=== PATIENT | female | born 1965 | race Caucasian/White ===

== ENCOUNTER 2016-11-06 12:52 | Emergency (ER) | payer OTHER ==
[~2016-11-06] VITALS: Ht 162.6 cm; Wt 66.0 kg
[~2016-11-06 12:52] MED LIST: BLAC20TA PO; IBUP800T23 PO; METH500T3 PO; NORC5TAB PO; ZOFR4TAB3 SL
[2016-11-06 12:54] VITALS: BP 120/70; PULSE 80; RESP 14; TEMP 98.2; O2SAT 99
[2016-11-06] MEDS ORDERED: SODIUM CHLORIDE 0.9% FLUSH 5 ML FLUSH IVF PRN (13:15)
[2016-11-06 13:32] LABS: AUTOMATED NEUTROPHIL # 4.6 TH/MM3 (1.8-7.7); BASOPHIL % 0.3 % (0.0-2.0); EOSINOPHIL # 0.1 TH/MM3 (0-0.4); EOSINOPHIL % 1.3 % (0.0-4.0); HEMATOCRIT 43.5 % (35.0-46.0); HEMO FLAGS DIFF FINAL; LYMPHOCYTE # 2.2 TH/MM3 (1.0-4.8); MEAN CORPUSCULAR HEMOGLOBIN 29.3 PG (27.0-34.0); MEAN CORPUSCULAR HGB CONC 33.7 % (32.0-36.0); MONO % 7.9 % (0.0-8.0); NEUT % 61.5 % (16.0-70.0); PLATELET COUNT 216 TH/MM3 (150-450); RED CELL DISTRIBUTION WIDTH 13.2 % (11.6-17.2); WHITE BLOOD COUNT 7.5 TH/MM3 (4.0-11.0)
--- NOTE | 2016-11-06 13:40 | PD ---
HPI Chief Complaint: Abdominal Pain Time Seen by Provider: 13:33 Travel History International Travel<30 days: No Contact w/Intl Traveler<30days: No Traveled to known affect area: No History of Present Illness HPI 50-year-old female presents to the emergency room for evaluation of periumbilical abdominal discomfort since last night. Patient states he discomfort radiates to her back, worse on the right side. She reports associated nausea without vomiting, early satiety, bloating, dysuria, urgency, and frequency. States she has had a UTI before and believes that she may have one now. She has history of chronic back pain for which she takes muscle relaxers and ibuprofen as needed. She has not taken her prescription for a long time because she has not needed to. She denies hematuria and diarrhea. Patient has history of partial hysterectomy but still has her ovaries. Denies any unusual vaginal bleeding. Patient also complains of left wrist pain for the past week. States she was planning to come to the emergency room anyway for evaluation of her wrist when her abdominal pain began. She denies any trauma or injury. States pain is worsened with any range of motion of the wrist. She has been taking 800 mg ibuprofen without relief in symptoms. Pain is localized to the ulnar aspect and radiates up her arm. Denies paresthesias. PFSH Past Medical History Asthma: Yes Cerebrovascular Accident: Yes Diminished Hearing: No Respiratory: Yes (Asthma ) Tetanus Vaccination: Unknown ?: Not Tubal Ligation: Yes Past Surgical History Hysterectomy: Yes Tonsillectomy: Yes Social History Alcohol Use: No Tobacco Use: Yes (occasional) Substance Use: No Allergies-Medications (Allergen,Severity, Reaction): Coded Allergies: Cipro (Verified Adverse Reaction, Severe, Nausea, 11/06/16) Reported Meds & Prescriptions Reported Meds & Active Scripts Active Bactrim DS (Sulfamethoxazole-Trimethoprim) 800-160 Mg Tab 1 Tab PO BID [place] (Hydrocodone-Acetaminophen) 5-325 mg Tab 1 Tab PO Q6H PRN Zofran Odt (Ondansetron Odt) 4 Mg Tab 4 Mg SL Q6HR PRN Reported Black Cohosh (Black Cohosh Extract) 20 Mg Tab 20 Mg PO DAILY Ibuprofen 800 Mg Tab 800 Mg PO Q6HR PRN Methocarbamol 500 Mg Tab 500 Mg PO TID PRN Review of Systems Except as stated in HPI: all other systems reviewed are Neg Physical Exam Narrative GENERAL: Well-nourished, well-developed female in no acute distress. Afebrile. Ambulatory. SKIN: Warm and dry. No erythema or ecchymosis. HEAD: Normocephalic. EYES: No scleral icterus. No injection or drainage. NECK: Supple, trachea midline. No JVD or lymphadenopathy. CARDIOVASCULAR: Regular rate and rhythm without murmurs, gallops, or rubs. RESPIRATORY: Breath sounds equal bilaterally. No accessory muscle use. GASTROINTESTINAL: Abdomen is soft, benign. Mild tenderness to palpation of the periumbilical region. No peritoneal signs. MUSCULOSKELETAL: No cyanosis, or edema. Full range of motion of the left wrist. 2+ radial pulse. Tenderness to palpation of the ulnar aspect. BACK: Nontender without obvious deformity. No CVA tenderness. Data Data Last Documented VS Vital Signs Date Time Temp Pulse Resp B/P Pulse Ox O2 Delivery O2 Flow Rate FiO2 11/06/16 17:02 70 18 113/75 99 Room Air 11/06/16 12:54 98.2 Orders Complete Blood Count With Diff (11/06/16 13:12) Comprehensive Metabolic Panel (11/06/16 13:12) Lipase (11/06/16 13:12) Prothrombin Time / Inr (Pt) (11/06/16 13:12) Act Partial Throm Time (Ptt) (11/06/16 13:12) Urinalysis - C+S If Indicated (11/06/16 13:12) Iv Access Insert/Monitor (11/06/16 13:12) Sodium Chloride 0.9% Flush (Ns Flush) (11/06/16 13:15) Ed Urine Pregnancytest Poc (11/06/16 13:12) Ct Abd/Pel W Iv Contrast(Rout) (11/06/16 ) Urine Culture (11/06/16 13:15) Ceftriaxone Inj (Rocephin Inj) (11/06/16 15:45) Iohexol 350 Inj (Omnipaque 350 Inj) (11/06/16 16:32) ^ Martell Bandage (11/06/16 17:22) Labs Laboratory Tests Test 11/06/16 13:15 White Blood Count 7.5 TH/MM3 Red Blood Count 5.00 MIL/MM3 Hemoglobin 14.6 GM/DL Hematocrit 43.5 % Mean Corpuscular Volume 87.0 FL Mean Corpuscular Hemoglobin 29.3 PG Mean Corpuscular Hemoglobin 33.7 % Concent Red Cell Distribution Width 13.2 % Platelet Count 216 TH/MM3 Mean Platelet Volume 8.7 FL Neutrophils (%) (Auto) 61.5 % Lymphocytes (%) (Auto) 29.0 % Monocytes (%) (Auto) 7.9 % Eosinophils (%) (Auto) 1.3 % Basophils (%) (Auto) 0.3 % Neutrophils # (Auto) 4.6 TH/MM3 Lymphocytes # (Auto) 2.2 TH/MM3 Monocytes # (Auto) 0.6 TH/MM3 Eosinophils # (Auto) 0.1 TH/MM3 Basophils # (Auto) 0.0 TH/MM3 CBC Comment DIFF FINAL Differential Comment Prothrombin Time 10.9 SEC Prothromb Time International 1.0 RATIO Ratio Activated Partial 26.6 SEC Thromboplast Time Urine Color YELLOW Urine Turbidity HAZY Urine pH 6.5 Urine Specific [place] 1.010 Urine Protein NEG mg/dL Urine Glucose (UA) NEG mg/dL Urine Ketones NEG mg/dL Urine Occult Blood TRACE Urine Nitrite NEG Urine Bilirubin NEG Urine Urobilinogen LESS THAN 2.0 MG/DL Urine Leukocyte Esterase LARGE Urine RBC 2 /hpf Urine WBC 119 /hpf Urine WBC Clumps RARE Urine Squamous Epithelial 9 /hpf Cells Urine Transitional Epithelial <1 /hpf Cells Urine Bacteria FEW /hpf Microscopic Urinalysis Comment CULTURE INDICATED Sodium Level 139 MEQ/L Potassium Level 4.0 MEQ/L Chloride Level 107 MEQ/L Carbon Dioxide Level 25.5 MEQ/L Anion Gap 7 MEQ/L Blood Urea Nitrogen 10 MG/DL Creatinine 0.75 MG/DL Estimat Glomerular Filtration 82 ML/MIN Rate Random Glucose 95 MG/DL Calcium Level 9.1 MG/DL Total Bilirubin 1.4 MG/DL Aspartate Amino Transf 13 U/L (AST/SGOT) Alanine Aminotransferase 28 U/L (ALT/SGPT) Alkaline Phosphatase 79 U/L Total Protein 7.8 GM/DL Albumin 3.9 GM/DL Lipase 161 U/L [facility] Medical Decision Making Medical Screen Exam Complete: Yes Emergency Medical Condition: Yes Medical Record Reviewed: Yes Differential Diagnosis Abdominal pain versus urinary tract infection versus pyelonephritis versus ovarian cyst Narrative Course 50-year-old female presents to the emergency room for evaluation of periumbilical abdominal pain since last night. Patient believes she may have a urinary tract infection because she has associated nausea, early satiety, bloating, dysuria, urgency, and frequency. Denies hematuria. Denies fever, chills. She is afebrile and well-appearing in the emergency room. Vital signs stable. IV access established basic labs obtained. CBC and CMP are unremarkable. UA shows evidence of urinary tract infection with large leukocyte esterase multiple wbc's and few bacteria. She'll be given 1 g IV Rocephin in the emergency room. Abdomen is soft, benign. Tenderness to palpation of the periumbilical region. No peritoneal signs. No significant CVA tenderness. No midline tenderness of the spine. CT the abdomen only shows constipation. Patient reassured. Abdominal pain likely due to constipation or urinary tract infection. Patient also mentions/reports left wrist pain for one week but when distracted has full range of motion of the left wrist without any apparent discomfort. It is neurovascularly intact with 2+ radial pulse. There was no trauma or injury and no indication for emergent imaging at this time. Likely tendinitis or arthritis. Patient placed in Martell wrap and told to follow up as an outpatient for further studies. Discharged with prescription for Bactrim and told to follow up with a primary care physician or return for worsening symptoms. She understands and agrees to this plan. Diagnosis Primary Impression: Urinary tract infection Qualified Code: N30.01 - Acute cystitis with hematuria Additional Impression: Left wrist tendonitis Referrals: Primary Care Physician Patient Instructions: General Instructions, Tendinitis (ED), Urinary Tract Infection in Women (ED) Additional Instructions: Rest and drink plenty of fluids. Bactrim as directed, until gone. Bentyl as directed, as needed for abdominal pain. Take ibuprofen with food as directed, as needed for wrist pain. Use Martell wrap and apply ice to the affected area for 20 minutes at a time, as needed for pain and swelling. Follow-up with a primary care physician. Return to the emergency room for worsening symptoms. Med/Other Pt SpecificInfo: Prescription(s) given Scripts Sulfamethoxazole-Trimethoprim (Bactrim DS)800-160 Mg Tab1 Tab PO BID #14 TAB Ref 0 Prov:Silver Cabrera MD 11/06/16 Disposition: 01 DISCHARGE HOME Condition: Stable Tracee Cain Nov 06, 2016 13:39
[2016-11-06 13:48] LABS: APTT (PATIENT) 26.6 SEC (24.3-30.1); BACTERIA, URINE FEW /hpf; BLOOD, URINE TRACE (NEG); GLUCOSE,URINE NEG (NEG); KETONE, URINE NEG (NEG); NITRITE,URINE NEG (NEG); PH, URINE 6.5 (5.0-8.5); PROTHROMBIN TIME - PATIENT 10.9 SEC (9.8-11.6); SQUAMOUS EPITHELIAL CELL URINE 9 /hpf (0-5); TRANSITIONAL EPI CELLS, URINE <1 /hpf; URINE COLOR YELLOW (YELLW/STRAW)
[2016-11-06 13:51] LABS: COMMENT (UR) CULTURE INDICATED; CULTURE IF INDICATED CULTURE INDICATED
[2016-11-06 13:53] LABS: ALT (GPT) 28 U/L (10-53); ANION GAP 7 MEQ/L (5-15); AST (GOT) 13 U/L (15-37); BICARBONATE 25.5 MEQ/L (21.0-32.0); BLOOD UREA NITROGEN 10 MG/DL (7-18); CHLORIDE 107 MEQ/L (98-107); GLOMERULAR FILTRATION RATE 82 ML/MIN (>89); SODIUM (NA) 139 MEQ/L (136-145)
[2016-11-06 13:55] LABS: ALKALINE PHOSPHATASE 79 U/L (45-117); TOTAL BILIRUBIN ADULT 1.4 MG/DL (0.2-1.0)
[2016-11-06] MEDS ORDERED: BACT800T5 PO (15:44)
[2016-11-06] MEDS ORDERED: cefTRIAXone INJ 1,000 MG in SODIUM CHLORIDE 0.9% INJ 100 ML IV ONE (15:45)
[2016-11-06] MEDS ORDERED: IOHEXOL 350 MG/ML 10 ML VIAL (for RAD DIAG) IV ONE (16:32)
[2016-11-06 17:02] VITALS: BP 113/75; PULSE 70; RESP 18; O2SAT 99
--- NOTE | 2016-11-06 17:25 | RADRPT ---
EXAM DATE/TIME: 11/06/2016 16:14 [facility] COMPARISON: No previous studies available for comparison. INDICATIONS : Lower abdominal pain and bloating. IV CONTRAST: 90 cc Omnipaque 350 (iohexol) IV ORAL CONTRAST: No oral contrast ingested. RADIATION DOSE: 6.20 CTDIvol (mGy) MEDICAL HISTORY : Inflammatory bowel disease. Uterine fibroids. SURGICAL HISTORY : Tubal ligation. Hysterectomy. ENCOUNTER: Initial ACUITY: 1 day PAIN SCALE: 5/10 LOCATION: Bilateral lower quadrant TECHNIQUE: Volumetric scanning of the abdomen and pelvis was performed. Using automated exposure control and ad justment of the mA and/or kV according to patient size, radiation dose was kept as low as reasonably achievable to obtain optimal diagnostic quality images. FINDINGS: Lipase is are clear except for minimal atelectasis. No significant abnormality in the liver, spleen, adrenals, kidneys or pancreas. No calcified gallston es or biliary ductal dilatation. No free fluid. No bowel obstruction. No pelvic masses or adenopathy. Mild constipation. No acute bony abnormalities. CONCLUSION: 1. Mild constipation. No acute findings on abdomen and pelvic CT. Michel Foreman MD on November 06, 2016 at 17:22 Board Certified Radiologist. This report was verified electronically.
[2016-11-06 18:05] VITALS: BP 116/70
[2016-11-18] MEDS ORDERED: IBUP800T23 PO (15:53)
[2016-11-18] MEDS ORDERED: PARO10TA2 PO (15:54)
[2016-11-18] MEDS ORDERED: AMOX500T PO (15:58)
[2016-12-23] MEDS ORDERED: ONDA4INJ2 IM (11:23)
[2016-12-23] MEDS ORDERED: CARB6.5S5 RIGHT EAR (11:36)
[2017-03-22] MEDS ORDERED: PARO10TA2 PO (13:09)
== END 2016-11-06 18:07 | disposition home or self-care (01) ==
LOC: NEPA 12:52
DX: N39.0 Urinary tract infection, site not specified (principal); M77.9 Enthesopathy, unspecified; Z72.0 Tobacco use
CPT/HCPCS: 74177; 80053; 81001; 83690; 84703; 85025; 85610; 85730; 87086; 96365; 99284; J0696; Q9967

== ENCOUNTER → 2016-12-07 | Outpatient (CLI) | payer OTHER ==
[~2016-12-07] MED LIST changes: +AMOX500T PO; +BACT800T5 PO; +CARB6.5S5 RIGHT EAR; -NORC5TAB PO; +ONDA4INJ2 IM; +PARO10TA2 PO
[2016-12-07 15:45] LABS: HDL CHOLESTEROL 58.9 MG/DL (40.0-60.0)
[2016-12-07 15:49] LABS: RHEUMATOID FACTOR TRIGGER LESS THAN 10.0 IU/ML (0.0-14.9)
== END ==
LOC: CLAB 14:29
PROVIDERS: ATTEND Family Medicine
DX: M77.8 Other enthesopathies, not elsewhere classified (principal); M54.9 Dorsalgia, unspecified; G43.909 Migraine, unspecified, not intractable, without status migrainosus; Z83.1 Family history of other infectious and parasitic diseases
CPT/HCPCS: 36415; 80061; 84443; 86430

== ENCOUNTER → 2017-04-04 | Outpatient (CLI) | payer OTHER ==
[~2017-04-04] MED LIST changes: -AMOX500T PO; -BACT800T5 PO; -ONDA4INJ2 IM; -ZOFR4TAB3 SL
== END ==
LOC: CLAB 12-23 12:03
PROVIDERS: ATTEND Family Medicine
DX: K52.9 Noninfective gastroenteritis and colitis, unspecified (principal)
CPT/HCPCS: 87506

== ENCOUNTER 2017-05-03 12:41 | Emergency (ER) | payer OTHER ==
[~2017-05-03] VITALS: Ht 162.6 cm; Wt 69.0 kg
[~2017-05-03 12:41] MED LIST changes: -BLAC20TA PO
[2017-05-03 12:44] VITALS: BP 130/72; PULSE 78; RESP 16; TEMP 97.6; O2SAT 97
[2017-05-03 13:36] LABS: GLUCOSE,URINE NEG (NEG); KETONE, URINE NEG (NEG); NITRITE,URINE NEG (NEG); PH, URINE 5.5 (5.0-8.5)
[2017-05-03 13:37] LABS: BLOOD, URINE MOD (NEG)
[2017-05-03 13:43] LABS: METHOD OF COLLECTION CLEAN CATCH; URINE COLOR STRAW (YELLW/STRAW)
[2017-05-03 13:49] LABS: BACTERIA, URINE FEW /hpf; COMMENT (UR) CULTURE INDICATED; CULTURE IF INDICATED CULTURE INDICATED; RBC, URINE 0-3 /hpf (0-3); SQUAMOUS EPITHELIAL CELL URINE 0-5 /hpf (0-5)
[2017-05-03 14:12] LABS: AUTOMATED NEUTROPHIL # 5.6 TH/MM3 (1.8-7.7); BASOPHIL # 0.1 TH/MM3 (0-0.2); BASOPHIL % 0.9 % (0.0-2.0); EOSINOPHIL # 0.1 TH/MM3 (0-0.4); EOSINOPHIL % 1.4 % (0.0-4.0); HEMATOCRIT 48.1 % (35.0-46.0); HEMO FLAGS DIFF FINAL; LYMPH % 22.8 % (9.0-44.0); LYMPHOCYTE # 1.9 TH/MM3 (1.0-4.8); MEAN CELL VOLUME 86.2 FL (80.0-100.0); MEAN CORPUSCULAR HEMOGLOBIN 29.1 PG (27.0-34.0); MEAN CORPUSCULAR HGB CONC 33.8 % (32.0-36.0); MONO % 5.4 % (0.0-8.0); NEUT % 69.5 % (16.0-70.0); PLATELET COUNT 236 TH/MM3 (150-450); RED BLOOD COUNT 5.58 MIL/MM3 (4.00-5.30); RED CELL DISTRIBUTION WIDTH 11.8 % (11.6-17.2); WHITE BLOOD COUNT 8.1 TH/MM3 (4.0-11.0)
[2017-05-03 14:14] LABS: CHLORIDE 109 MEQ/L (98-107); POTASSIUM 3.7 MEQ/L (3.5-5.1); SODIUM (NA) 140 MEQ/L (136-145)
[2017-05-03] MEDS ORDERED: cefTRIAXone INJ 1,000 MG in SODIUM CHLORIDE 0.9% INJ 100 ML IV ONE (14:15)
[2017-05-03 14:18] LABS: ANION GAP 8 MEQ/L (5-15); BICARBONATE 23.2 MEQ/L (21.0-32.0); BLOOD UREA NITROGEN 9 MG/DL (7-18)
[2017-05-03] MEDS ORDERED: CEPH-460 PO (14:20)
[2017-05-03] MEDS ORDERED: FLUC150T PO (14:20)
--- NOTE | 2017-05-03 14:20 | PD ---
HPI Chief Complaint: Complaint Time Seen by Provider: 13:27 Travel History International Travel<30 days: No Contact w/Intl Traveler<30days: No Traveled to known affect area: No History of Present Illness HPI So 51 year-old woman who presents to the emergency department complaining of dysuria and lower abdominal discomfort. She states that she's had trouble with recurrent bladder infections ever since she had a bladder mesh procedure done several years ago. She started having dysuria, feelings of incomplete voiding, and lower abdominal discomfort and tenderness over the past 4 days or so. She did have a some loose watery stools yesterday. She also was told at a routine past year that she had a yeast infection and has been using clotrimazole intravaginal cream and has been having a lot of itching and irritation since using the cream although she had no symptoms prior. She had otherwise been feeling well before this. She is a history of bilateral tubal ligation, partial hysterectomy for fibroids, and a mesh or breath or prolapse. She states she still is a lot of trouble of leaking urine having to stand awkwardly to your bladder completely. History Past Medical History Narrative Medical Back problems Tetanus Vaccination: > 5 Years Social History Alcohol Use: No Tobacco Use: Yes (occasional) Allergies-Medications (Allergen,Severity, Reaction): Coded Allergies: Cipro (Verified Adverse Reaction, Severe, Nausea, 04/07/17) Reported Meds & Prescriptions Reported Meds & Active Scripts Active Fluconazole 150 Mg Tab 150 Mg PO ONCE Keflex (Cephalexin) 500 Mg Cap 500 Mg PO Q12H 10 Days Paroxetine (Paroxetine HCl) 10 Mg Tab 10 Mg PO DAILY Debrox Otic Drops (Carbamide Peroxide Otic Drops) 6.5% Soln 5-10 Drop RIGHT EAR BID up to 4 days. Ibuprofen 800 Mg Tab 800 Mg PO Q8H PRN Reported Methocarbamol 500 Mg Tab 750 Mg PO Q6HR PRN Review of Systems Except as stated in HPI: all other systems reviewed are Neg Physical Exam Narrative GENERAL: Well-appearing 51 year-old woman, no acute distress. SKIN: Focused skin assessment warm/dry. HEAD: Atraumatic. Normocephalic. CARDIOVASCULAR: Regular rate and rhythm. No murmur appreciated. RESPIRATORY: No accessory muscle use. Clear to auscultation. Breath sounds equal bilaterally. GASTROINTESTINAL: Abdomen flat and soft. There is mild suprapubic tenderness to palpation. No rebound or guarding. : Normal external female genitalia. Some scant white vaginal discharge. MUSCULOSKELETAL: No obvious deformities. No clubbing. No cyanosis. No edema. NEUROLOGICAL: Awake and alert. No obvious cranial nerve deficits. Motor grossly within normal limits. Normal speech. Data Data Last Documented VS Vital Signs Date Time Temp Pulse Resp B/P Pulse Ox O2 Delivery O2 Flow Rate FiO2 05/03/17 12:44 97.6 78 16 130/72 97 Orders Urinalysis - C+S If Indicated (05/03/17 12:43) Complete Blood Count With Diff (05/03/17 13:40) Comprehensive Metabolic Panel (05/03/17 13:40) Wet Prep Profile (05/03/17 13:40) Iv Access Insert/Monitor (05/03/17 13:40) Urine Culture (05/03/17 13:20) Ceftriaxone Inj (Rocephin Inj) (05/03/17 14:15) Labs Laboratory Tests Test 05/03/17 05/03/17 13:20 13:54 Urine Collection Type CLEAN CATCH Urine Color STRAW Urine Turbidity SLIGHT Urine pH 5.5 Urine Specific [place] 1.009 Urine Protein NEG mg/dL Urine Glucose (UA) NEG mg/dL Urine Ketones NEG mg/dL Urine Occult Blood MOD Urine Nitrite NEG Urine Bilirubin NEG Urine Leukocyte Esterase MOD Urine RBC 0-3 /hpf Urine WBC 50-99 /hpf Urine WBC Clumps MOD Urine Squamous Epithelial 0-5 /hpf Cells Urine Amorphous Sediment FEW Urine Bacteria FEW /hpf Microscopic Urinalysis Comment CULTURE INDICATED Urine Collection Time 1320 White Blood Count 8.1 TH/MM3 Red Blood Count 5.58 MIL/MM3 Hemoglobin 16.2 GM/DL Hematocrit 48.1 % Mean Corpuscular Volume 86.2 FL Mean Corpuscular Hemoglobin 29.1 PG Mean Corpuscular Hemoglobin 33.8 % Concent Red Cell Distribution Width 11.8 % Platelet Count 236 TH/MM3 Mean Platelet Volume 9.4 FL Neutrophils (%) (Auto) 69.5 % Lymphocytes (%) (Auto) 22.8 % Monocytes (%) (Auto) 5.4 % Eosinophils (%) (Auto) 1.4 % Basophils (%) (Auto) 0.9 % Neutrophils # (Auto) 5.6 TH/MM3 Lymphocytes # (Auto) 1.9 TH/MM3 Monocytes # (Auto) 0.4 TH/MM3 Eosinophils # (Auto) 0.1 TH/MM3 Basophils # (Auto) 0.1 TH/MM3 CBC Comment DIFF FINAL Differential Comment Clue Cells (Wet Prep) NONE SEEN Vaginal Trichomonas (Wet Prep) NONE SEEN Vaginal Yeast (Wet Prep) NONE SEEN Sodium Level 140 MEQ/L Potassium Level 3.7 MEQ/L Chloride Level 109 MEQ/L Carbon Dioxide Level 23.2 MEQ/L Anion Gap 8 MEQ/L Blood Urea Nitrogen 9 MG/DL Creatinine 0.69 MG/DL Estimat Glomerular Filtration 90 ML/MIN Rate Random Glucose 90 MG/DL Calcium Level 9.4 MG/DL Total Bilirubin 0.6 MG/DL Aspartate Amino Transf 28 U/L (AST/SGOT) Alanine Aminotransferase 62 U/L (ALT/SGPT) Alkaline Phosphatase 106 U/L Total Protein 8.2 GM/DL Albumin 4.0 GM/DL [facility] Medical Decision Making Medical Screen Exam Complete: Yes Emergency Medical Condition: Yes Interpretation(s) UA: Pyuria Wet prep negative CBC remarkable for mildly elevated hemoglobin. CMP unremarkable Differential Diagnosis UTI, pyelonephritis, diarrhea, diverticulitis, yeast infection, other Narrative Course Medical decision making Is a 51 year-old woman who presents to the emergency department with lower abdominal discomfort and dysuria with evidence of UTI. She appears of incomplete voiding and problems with pelvic floor relaxation. She's had a bladder mesh procedure done. She likely needs to follow-up with a uro- rotary drier feeder again. She was treated for yeast infection. We did a wet prep is 90s now. She may develop yeast infection again following antibiotic treatment. We'll plan on treating with Keflex, I will give her prescription for fluconazole if needed. Diagnosis Primary Impression: UTI (urinary tract infection) Additional Instructions: Take antibiotics as prescribed. Take fluconazole if you develop yeast infection symptoms. Follow-up with your primary physician for referral to gynecology. You could consider following with Dr. Patel, uro-rotary drier feeder. Return to the emergency department for any new or worsening symptoms. Med/Other Pt SpecificInfo: Prescription(s) given Scripts Fluconazole 150 Mg [id number] Mg PO ONCE #1 TAB Ref 0 Prov:Adrian Velazquez MD 05/03/17 Cephalexin (Keflex)500 Mg [id number] Mg PO Q12H 10 Days Ref 0 Prov:Adrian Velazquez MD 05/03/17 Disposition: 01 DISCHARGE HOME Condition: Stable Adrian Velazquez MD May 03, 2017 14:20
[2017-05-03 14:21] LABS: ALT (GPT) 62 U/L (10-53); AST (GOT) 28 U/L (15-37); GLOMERULAR FILTRATION RATE 90 ML/MIN (>89)
[2017-05-03 14:23] LABS: TOTAL BILIRUBIN ADULT 0.6 MG/DL (0.2-1.0)
[2017-05-03 14:24] LABS: ALKALINE PHOSPHATASE 106 U/L (45-117)
--- NOTE | 2017-05-03 14:31 | PD ---
Data Data Last Documented VS Vital Signs Date Time Temp Pulse Resp B/P Pulse Ox O2 Delivery O2 Flow Rate FiO2 05/03/17 12:44 97.6 78 16 130/72 97 Orders Urinalysis - C+S If Indicated (05/03/17 12:43) Complete Blood Count With Diff (05/03/17 13:40) Comprehensive Metabolic Panel (05/03/17 13:40) Wet Prep Profile (05/03/17 13:40) Iv Access Insert/Monitor (05/03/17 13:40) Urine Culture (05/03/17 13:20) Ceftriaxone Inj (Rocephin Inj) (05/03/17 14:15) Labs Laboratory Tests Test 05/03/17 05/03/17 13:20 13:54 Urine Collection Type CLEAN CATCH Urine Color STRAW Urine Turbidity SLIGHT Urine pH 5.5 Urine Specific [place] 1.009 Urine Protein NEG mg/dL Urine Glucose (UA) NEG mg/dL Urine Ketones NEG mg/dL Urine Occult Blood MOD Urine Nitrite NEG Urine Bilirubin NEG Urine Leukocyte Esterase MOD Urine RBC 0-3 /hpf Urine WBC 50-99 /hpf Urine WBC Clumps MOD Urine Squamous Epithelial 0-5 /hpf Cells Urine Amorphous Sediment FEW Urine Bacteria FEW /hpf Microscopic Urinalysis Comment CULTURE INDICATED Urine Collection Time 1320 White Blood Count 8.1 TH/MM3 Red Blood Count 5.58 MIL/MM3 Hemoglobin 16.2 GM/DL Hematocrit 48.1 % Mean Corpuscular Volume 86.2 FL Mean Corpuscular Hemoglobin 29.1 PG Mean Corpuscular Hemoglobin 33.8 % Concent Red Cell Distribution Width 11.8 % Platelet Count 236 TH/MM3 Mean Platelet Volume 9.4 FL Neutrophils (%) (Auto) 69.5 % Lymphocytes (%) (Auto) 22.8 % Monocytes (%) (Auto) 5.4 % Eosinophils (%) (Auto) 1.4 % Basophils (%) (Auto) 0.9 % Neutrophils # (Auto) 5.6 TH/MM3 Lymphocytes # (Auto) 1.9 TH/MM3 Monocytes # (Auto) 0.4 TH/MM3 Eosinophils # (Auto) 0.1 TH/MM3 Basophils # (Auto) 0.1 TH/MM3 CBC Comment DIFF FINAL Differential Comment Clue Cells (Wet Prep) NONE SEEN Vaginal Trichomonas (Wet Prep) NONE SEEN Vaginal Yeast (Wet Prep) NONE SEEN Sodium Level 140 MEQ/L Potassium Level 3.7 MEQ/L Chloride Level 109 MEQ/L Carbon Dioxide Level 23.2 MEQ/L Anion Gap 8 MEQ/L Blood Urea Nitrogen 9 MG/DL Creatinine 0.69 MG/DL Estimat Glomerular Filtration 90 ML/MIN Rate Random Glucose 90 MG/DL Calcium Level 9.4 MG/DL Total Bilirubin 0.6 MG/DL Aspartate Amino Transf 28 U/L (AST/SGOT) Alanine Aminotransferase 62 U/L (ALT/SGPT) Alkaline Phosphatase 106 U/L Total Protein 8.2 GM/DL Albumin 4.0 GM/DL MDM Supervised Visit with LUIS: No Diagnosis Primary Impression: UTI (urinary tract infection) Referrals: Rinku Patel MD call for appointment Additional Instruction: Take antibiotics as prescribed. Take fluconazole if you develop yeast infection symptoms. Follow-up with your primary physician for referral to gynecology. You could consider following with Dr. Patel, uro-plate filler. Return to the emergency department for any new or worsening symptoms. Scripts Fluconazole 150 Mg [id number] Mg PO ONCE #1 TAB Ref 0 Prov:Adrian Velazquez MD 05/03/17 Cephalexin (Keflex)500 Mg [id number] Mg PO Q12H 10 Days Ref 0 Prov:Adrian Velazquez MD 05/03/17 Disposition: 01 DISCHARGE HOME Condition: Stable Adrian Velazquez MD May 03, 2017 14:31
[2017-05-03 14:43] VITALS: BP 111/66; PULSE 73; RESP 16; O2SAT 99
== END 2017-05-03 15:52 | disposition home or self-care (01) ==
LOC: PHED 12:41
DX: N39.0 Urinary tract infection, site not specified (principal); B96.20 Unspecified Escherichia coli [E. coli] as the cause of diseases classified elsewhere
CPT/HCPCS: 80053; 81001; 85025; 87077; 87086; 87186; 87210; 96365; 99285; J0696

== ENCOUNTER 2017-07-15 19:14 | Emergency (ER) | payer OTHER ==
[~2017-07-15 19:14] MED LIST changes: +CEPH-460 PO; +FLUC150T PO
[2017-07-15 19:21] VITALS: BP 115/62; PULSE 79; RESP 20; TEMP 98.4; O2SAT 99
[2017-07-15] MEDS ORDERED: GABA100C4 PO (19:34)
--- NOTE | 2017-07-15 20:29 | RADRPT ---
EXAM DATE/TIME: 07/15/2017 19:42 [facility] COMPARISON: No previous studies available for comparison. INDICATIONS : Left medial ankle pain. No known injury. MEDICAL HISTORY : Inflammatory bowel disease. Uterine fibroids SURGICAL HISTORY : Tubal ligation. Hysterectomy. ENCOUNTER: Initial ACUITY: 1 day PAIN SCORE: 8/10 LOCATION: Left medial ankle FINDINGS: Three view exam was performed of the left ankle. The bony structures are in normal alignment. No ev idence of fracture, dislocation, or soft tissue swelling. The ankle mortise is intact. No radiopaqu e foreign bodies are seen. Bony mineralization is normal. CONCLUSION: Unremarkable examination of the left ankle. Otoinel Nelson MD on July 15, 2017 at 20:27 Board Certified Radiologist. This report was verified electronically.
[2017-07-15] MEDS ORDERED: KETOROLAC TROMETHAMINE 60 MG/2 ML (IM) VIAL IM ONE (21:15)
--- NOTE | 2017-07-15 21:15 | PD ---
HPI . Left ankle pain Chief Complaint: Injury Time Seen by Provider: 19:25 Travel History International Travel<30 days: No Contact w/Intl Traveler<30days: No Traveled to known affect area: No History of Present Illness HPI 51-year-old female presents to the emergency department for evaluation of left ankle pain that occurred spontaneously while she was at work today. Patient denies any injury or trauma to the left ankle. Patient states she was walking when she initially felt pain. She does not remember landing on it and offered position. Patient states the pain is so severe she cannot dorsi or plantar flex. Patient denies any paresthesias. Capillary refill within normal limits. Patient able to wiggle her toes but not move the foot at the ankle. The ankle does not appear to be edematous, ecchymotic, erythematous, or cyanotic. The left ankle is neurovascularly intact. The patient states the pain in the left ankle and radiates up her leg when she tries to walk on it. Was recently treated for a torn ligament in that leg. PFSH Past Medical History Asthma: Yes Cerebrovascular Accident: Yes Diminished Hearing: No Musculoskeletal: Yes (CHRONIC BACK PAIN) Respiratory: Yes (Asthma ) Immunizations Current: Yes ?: Not Tubal Ligation: Yes Past Surgical History Genitourinary Surgery: Yes (BLADDER SLING/MESH) Hysterectomy: Yes (PARTIAL) Tonsillectomy: Yes Social History Alcohol Use: Yes Tobacco Use: Yes (occasional) Substance Use: No Allergies-Medications (Allergen,Severity, Reaction): Coded Allergies: ciprofloxacin (Unverified Adverse Reaction, Severe, Nausea, 07/15/17) Reported Meds & Prescriptions Reported Meds & Active Scripts Active Paroxetine (Paroxetine HCl) 10 Mg Tab 10 Mg PO DAILY Ibuprofen 800 Mg Tab 800 Mg PO Q8H PRN Reported Gabapentin 100 Mg Cap Unknown Dose PO BID Methocarbamol 500 Mg Tab 750 Mg PO Q6HR PRN Review of Systems Except as stated in HPI: all other systems reviewed are Neg Physical Exam Narrative GENERAL: Well-nourished, well-developed 51-year-old female patient in no acute distress. Nontoxic appearing SKIN: Focused skin assessment warm/dry. HEAD: Normocephalic. Atraumatic. EYES: No scleral icterus. No injection or drainage. NECK: Supple, trachea midline. No JVD or lymphadenopathy. CARDIOVASCULAR: Regular rate and rhythm without murmurs, gallops, or rubs. Pedal pulses +2 bilaterally. RESPIRATORY: Breath sounds equal bilaterally. No accessory muscle use. GASTROINTESTINAL: Abdomen soft, non-tender, nondistended. MUSCULOSKELETAL: Limited range of motion of the left foot with pedal and dorsiflexion. No cyanosis, erythema or edema. BACK: Nontender without obvious deformity. No CVA tenderness. Data Data Last Documented VS Vital Signs Date Time Temp Pulse Resp B/P (MAP) Pulse Ox O2 Delivery O2 Flow Rate FiO2 07/15/17 19:21 98.4 79 20 115/62 (79) 99 Orders Orders Ankle, Complete ([id number]) (07/15/17 19:31) Ice/Cold Pack (07/15/17 19:31) [facility] Medical Decision Making Medical Screen Exam Complete: Yes Emergency Medical Condition: Yes Differential Diagnosis Differential diagnoses include but not limited to left ankle contusion, ligament damage exacerbation, left ankle sprain, foot contusion Narrative Course 51-year-old female presents to emergency room for evaluation of left ankle pain that occurred spontaneously when she was at work today. Patient denies any injury or trauma occurring to the site. Patient has been recently treated for ligament injury to that leg. The left leg is neurovascularly intact. Patient states she is not able to dorsi or pedal flex the foot to the pain. X-ray of the left ankle ordered and pending. X-ray of the left ankle shows no acute fracture or dislocation. Patient will be given an IM injection of Toradol, left ankle be Martell wrap and ice will be applied. Patient will be discharged home with instructions to follow-up with her primary care. Diagnosis Primary Impression: Left ankle pain Qualified Codes: M25.572 - Pain in left ankle and joints of left foot Referrals: Primary Care Physician Patient Instructions: Ankle Strain (ED), General Instructions Additional Instructions: Please return to emergency department if your symptoms return or worsen. Follow up with your primary care provider. May use ice and [id number] Motrin as needed for pain and inflammation. Elevate left foot when resting. Disposition: 01 DISCHARGE HOME Condition: Stable CaylaOksana whitlock Christy FONG Jul 15, 2017 21:15
== END 2017-07-15 21:43 | disposition home or self-care (01) ==
LOC: PHEFT 19:14
DX: M25.572 Pain in left ankle and joints of left foot (principal); J45.909 Unspecified asthma, uncomplicated
CPT/HCPCS: 73610; 96372; 99284; J1885